=== PATIENT | male | born 1995 | race Caucasian/White ===

== ENCOUNTER 2023-09-17 11:39 | Emergency (ER) | payer OTHER, SELFPAY ==
[2023-09-17 11:52] VITALS: BP 147/89
--- NOTE | 2023-09-17 13:00 | ED.SKININJ ---
HPI-Injury
General
Chief Complaint: Eye Problems
Source: patient
Exam Limitations: none
Time Seen by Provider: 09/17/23 12:51
Travel History
Have you had any contact with someone who has COVID-19?: No
Do you have any symptoms of coronavirus? Fever > 100 degrees, chills, cough, shortness of breath, sore throat, loss of taste or smell, muscle aches, or headache?: No
History of Present Illness-Injury
Initial Injury comments:
28-year-old male presents with possible retained contact lens in the right eye. He has been seen at the urgent care twice. He was last seen yesterday at the urgent care and they thought they saw his contact in the corner of his eye and referred
him to [facility]. He presents today with more eye irritation. He just started wearing contact lenses 3 months ago. He does not recall falling asleep with his contacts. He does not recall the contact lens falling out. He still presents with a
foreign body sensation. He has been on gentamicin drops since the urgent care
Phy Exam
Physical Exam
Physical Exam:
General: Well-appearing male no acute respiratory distress
HEENT: Right eye scleral injection. Brief regular light provides no obvious foreign body.
Course
Vital Signs
Initial and Last Documented VS:
Initial Vital Signs
Temp Pulse Resp BP Pulse Ox
98.0 F 78 16 147/89 98
09/17/23 11:52 09/17/23 11:52 09/17/23 11:52 09/17/23 11:52 09/17/23 11:52
Last Documented Vital Signs
Temp Pulse Resp BP Pulse Ox
98.0 F 78 16 147/89 98
09/17/23 11:52 09/17/23 11:52 09/17/23 11:52 09/17/23 11:52 09/17/23 11:52
MDM/Problems Addressed
Differential Diagnosis Includes:
Will numb the eye and continue to look with stain for potential retained foreign body.
*Critical Care Note
Total Time (30-74mins, 75-104mins- exclusive of procedures): Not Applicable
Update Note
Update Note:
Patient evaluated with slit lamp and fluorescein staining. On my exam I cannot appreciate any retained foreign bodies. The sclera is diffusely injected. Question possible irritation locally from trying to remove the contact lens. Spoke with
ophthalmology to establish close follow-up. Patient advised to call them for appointment.
ED Attending Note
-
Portions of this chart may have been created with voice recognition software.� Occasional wrong word or��sound alike� substitutions may have occurred due to the inherent limitations of voice recognition software.
Discharge Plan
Departure
Patient Disposition: Home (Routine Discharge)
Date of Disposition: 09/17/23
Time of Disposition: 13:50
Patient with high blood pressure during this ER visit?: No
Discharge Problem:
Discomfort of right eye
Referrals:
Niels Chavis MD [Active] -
NONE,* [Family Provider] -
Activity Restrictions/Additional Instructions:
Please call Dr. Chavis's office to set up appointment. Continue the drops
Discharge Date and Time
Print Language: [id number]
== END 2023-09-17 14:09 | disposition home or self-care (01) ==
LOC: EMR 11:39
PROVIDERS: EMERGENCY PHYSICIAN Emergency Medicine
DX: H57.11 Ocular pain, right eye (principal)
CPT/HCPCS: 99283